=== PATIENT | male | born 1990 | race Caucasian/White ===

== ENCOUNTER 2018-05-24 13:48 | Emergency (ER) | payer OTHER, SELFPAY ==
[2018-05-24] MEDS ORDERED: Adacel (T-DAP) 0.5 ML SYRINGE ONE (14:31)
--- NOTE | 2018-05-24 15:19 | RAD ---
LEFT ELBOW 4 VIEWS: DATE: 05/24/2018. FINDINGS: A small joint effusion may be present. The positioning and display of the radial head and neck are s uboptimal. On some views I would wonder if there is a buckle of the cortex here, and in others it do es not appear so. In view of the fact that there is a small amount of joint fluid, it may be best to splint the patient initially and then repeat a 4-view study in a week or so to better display this a isaura, perhaps easier to do once there is less pain. IMPRESSION: Small joint effusion. Views not optimal but further followup may be needed. Radial neck is suspect and needs follow up. CODE T POS: HOME
--- NOTE | 2018-05-24 15:21 | RAD ---
LEFT FOREARM 2 VIEWS: DATE: 05/24/2018. FINDINGS: There is a question of a little bit of buckle of the cortex at the radial neck near the elbow. The f inding is not definitive enough to confidently diagnose a fracture, but I believe suspicion of a frac ture should be maintained for now. There does appear to be a small amount of joint fluid at the elbo w. The remainder of the radius and ulna appeared intact. IMPRESSION: Equivocal findings at the radial neck. A followup in 1 week recommended. Finding discussed with Dr. Isbell at approx. 1500. Patient's pain is greater than expected, which increases the chances that radial neck is indeed injured. POS: HOME
== END 2018-05-24 15:38 | disposition home or self-care (01) ==
LOC: BURERS 13:48
DX: M25.422 Effusion, left elbow (principal)
CPT/HCPCS: 29105; 90471; 90715